=== PATIENT | male | born 1970 | race Caucasian/White ===

== ENCOUNTER 2017-03-05 07:53 | Day surgery (SDC) | payer BC, OTHER ==
[~2017-03-05] VITALS: Ht 172.7 cm; Wt 91.6 kg
[~2017-03-05 07:53] MED LIST: BACITRACIN OINT 500U/GM, 15 GM ONE; EPINEPHRINE 1 MG/ML, 1ML ONE; EPINEPHRINE TOPICAL SOLN 1 MG/ML, 30ML ONE; FLUORESCEIN OPHTHALMIC 1 MG STRIP ONE; LIDOCAINE/PF 1%, 30ML ONE; OXYMETAZOLINE NASAL SPRAY 0.05%, 15ML ONE
[2017-03-05 08:34] VITALS: BP 146/94
[2017-03-05] MEDS ORDERED: OMEP40CA6 PO (08:40)
[2017-03-05] MEDS ORDERED: MONT10TA9 PO (08:40)
[2017-03-05] MEDS ORDERED: CETI-158 PO (08:40)
[2017-03-05] MEDS ORDERED: PRED10TA PO (08:40)
[2017-03-05] MEDS ORDERED: MOME13HF2 INH (08:40)
[2017-03-05] MEDS ORDERED: LACTATED RINGERS 1,000 ML IV SCH (08:41)
[2017-03-05] MEDS ORDERED: LIDOCAINE 1%, 2ML ONE (08:43)
[2017-03-05] MEDS ORDERED: LIDOCAINE 1%, 2ML SQ PRN (09:00)
[2017-03-05] MEDS ORDERED: FENTANYL PF 250 MCG/5ML ONE (09:01)
[2017-03-05] MEDS ORDERED: MIDAZOLAM 1 MG/ML, 2ML ONE (09:01)
[2017-03-05] MEDS ORDERED: methylPREDNISolone SOD SUCC 125 MG/2 ML ONE (09:57)
[2017-03-05] MEDS ORDERED: LIDOCAINE/PF 1%, 30ML INFIL ONE (10:22)
[2017-03-05] MEDS ORDERED: EPINEPHRINE TOPICAL SOLN 1 MG/ML, 30ML TP ONE (10:23)
[2017-03-05] MEDS ORDERED: FLUORESCEIN OPHTHALMIC 1 MG STRIP HOMEOPHTH ONE (10:24)
[2017-03-05] MEDS ORDERED: BACITRACIN OINT 500U/GM, 15 GM TP ONE (10:25)
[2017-03-05] MEDS ORDERED: METOPROLOL 1 MG/ML, 5ML IV PRN (10:30)
[2017-03-05] MEDS ORDERED: ALBUTEROL SULFATE 2.5 MG/3 ML NPPB PRN (10:30)
[2017-03-05] MEDS ORDERED: ONDANSETRON 2MG/ML, 2ML IVPush PRN (10:30)
[2017-03-05] MEDS ORDERED: PROMETHAZINE 25 MG/ML, 1ML IV PRN (10:30)
[2017-03-05] MEDS ORDERED: ALBUTEROL/IPRATROPIUM 2.5MG/0.5MG, 3 ML NPPB PRN (10:30)
[2017-03-05] MEDS ORDERED: ACETAMINOPHEN 325 MG TABLET PO PRN (10:30)
[2017-03-05] MEDS ORDERED: HYDROmorphone 1 MG/ML, 1ML IV PRN (10:30)
[2017-03-05] MEDS ORDERED: MEPERIDINE/PF 25MG/0.5ML IVPush PRN (10:30)
[2017-03-05] MEDS ORDERED: EPHEDRINE 50 MG/ML, 1ML IVPush PRN (10:30)
[2017-03-05] MEDS ORDERED: OXYcodone 5 MG/5 ML ORAL.SOL UDC PO PRN (10:30)
[2017-03-05] MEDS ORDERED: MIDAZOLAM 1 MG/ML, 2ML IV PRN (10:30)
[2017-03-05] MEDS ORDERED: HYDROcodone/APAP 7.5-325MG/15ML UDC PO PRN (10:30)
[2017-03-05] MEDS ORDERED: FENTANYL PF 100 MCG/2ML IV PRN (10:30)
[2017-03-05] MEDS ORDERED: hydrALAzine 20 MG/ML, 1ML IV PRN (10:30)
[2017-03-05] MEDS ORDERED: LABETALOL 5MG/ML, 20ML IV PRN (10:30)
[2017-03-05] MEDS ORDERED: DIAZEPAM 5 MG/ML, 2ML IVPush PRN (10:30)
[2017-03-05] MEDS ORDERED: SUCCINYLCHOLINE 20 MG/ML, 10ML ONE (12:22)
[2017-03-05] MEDS ORDERED: PROPOFOL 10 MG/ML, 20ML ONE (12:22)
[2017-03-05] MEDS ORDERED: CEFAZOLIN 1,000 MG ONE (12:22)
[2017-03-05] MEDS ORDERED: ONDANSETRON 2MG/ML, 2ML ONE ×2 (12:22→12:24)
[2017-03-05] MEDS ORDERED: DEXAMETHASONE 4 MG/ML, 1ML ONE (12:22)
[2017-03-05] MEDS ORDERED: ROCURONIUM 10 MG/ML,10ML ONE (12:22)
[2017-03-05] MEDS ORDERED: OXYcodone 5 MG/5 ML ORAL.SOL UDC ONE (12:31)
[2017-03-05] MEDS ORDERED: FENTANYL PF 100 MCG/2ML ONE (12:31)
[2017-03-05] MEDS ORDERED: PROMETHAZINE 25 MG/ML, 1ML ONE (12:48)
== END 2017-03-05 15:15 ==
LOC: OUT 07:53
PROVIDERS: ATTEND Otolaryngology
DX: J32.9 Chronic sinusitis, unspecified (principal); J33.9 Nasal polyp, unspecified; J45.909 Unspecified asthma, uncomplicated; K21.9 Gastro-esophageal reflux disease without esophagitis; Z88.0 Allergy status to penicillin; Z88.8 Allergy status to other drugs, medicaments and biological substances
CPT/HCPCS: 31255; 31267; 31276; 31288; 61782; 87070; 87075; 87077; 87186; 87205; 88304; 93005; J0171; J0330; J0690; J1100; J2250; J2405; J2550; J2704; J2930; J3010; J3490; J7120